=== PATIENT | female | born 1965 | race Caucasian/White ===

== ENCOUNTER 2017-10-04 13:06 | Emergency (ER) | payer BC ==
[2017-10-04 14:08] LABS: ABS Basophils 0.1 10^3/ul (0-0.2); ABS Eosinophils 0.6 10^3/ul (0-0.6); ABS Lymphocytes 1.7 10^3/ul (1.0-4.8); ABS Monocytes 1.3 10^3/ul (0-0.8); ABS Nucleated RBC 0 10^3/ul; Hematocrit 37 % (35-47); Hemoglobin 12.1 g/dl (12.0-16.0); Lymphocyte % 10.7 % (25-47); Mean Corpuscular HGB Conc 33 g/dl (31-36); Mean Corpuscular Hemoglobin 30 pg (27-31); Mean Corpuscular Volume 92 fL (80-97); Mean Platelet Volume 7 um3 (7.4-10.4); Nucleated Red Blood Cells % 0; Platelet Count 478 10^3/ul (150-450); Red Blood Count 4.03 10^6/ul (4.0-5.4); Red Cell Distribution Width 13 % (10.5-15); White Blood Count 15.6 10^3/ul (3.5-10.8)
[2017-10-04 14:10] LABS: Urine Appearance Clear; Urine Blood Negative (Negative); Urine Color Straw; Urine Ketones Negative (Negative); Urine Protein Negative (Negative); Urine Specific Gravity 1.003 (1.010-1.030); Urine Urobilinogen Negative (Negative)
[2017-10-04 14:13] LABS: INR 0.95 (0.77-1.02)
[2017-10-04] MEDS ORDERED: NS 0.9% 1000 ML* 1,000 ML BOLUS SCH (14:15)
[2017-10-04 14:24] LABS: EGFR Non-African American 98.8 (>60)
[2017-10-04] MEDS ORDERED: Ketorolac INJ* 30 MG/ML 1 ML VIAL IV PUSH ONE (14:59)
[2017-10-04] MEDS ORDERED: Ondansetron INJ* 2 MG/ML VIAL IV ONE (15:00)
[2017-10-04 15:42] VITALS: BP 103/59
--- NOTE | 2017-10-04 20:51 | ED ---
Steve Stephens Natalie, scribed for Za Joe MD on 10/04/17 at 1454 . GI/ HPI - HPI Summary HPI Summary: The patient is a 52 y/o F presenting to the ED accompanied by c/o blood in stool, diarrhea, and diffuse abd pain since 09/17/17. The pain is rated 8/ 10. The pain is alleviated by lying down. The patient and her took a trip to [facility] from 09/08/17-09/18/17, when the pt woke up with runny, liquid , brown, diarrhea starting on 09/17/17. Since shes been home, the diarrhea has had an orange color. She normally takes Mesalamine 2x daily for hx of ulcerative colitis as prescribed by her PCP Dr. Sarabia. After a week of the diarrhea not getting better, she started taking the Mesalamine 4x daily as recommended by Dr. Sarabia. She started taking a depository of Mesalamine, to no relief. Then she took Pepto-Bismol which made the abd cramping worse. 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 Results from Dr. Sarabia 09/30 show stool specimens collected were all negative with unremarkable results. She has FHx of Crohns disease in mother. - History of Current Complaint Chief Complaint: EDAbdPain Time Seen by Provider: 10/04/17 13:36 Stated Complaint: DIAHREA Hx Obtained From: Patient Onset/Duration: Started Weeks Ago - starting 09/17/17, Still Present Timing: Constant Severity: Moderate Current Severity: Moderate Pain Intensity: 9 Location of Pain: Diffuse Pain Characteristics: Cramping Associated Signs and Symptoms: Positive: Blood w/Stool, Diarrhea, Abdominal Pain - Allergy/Home Medications Allergies/Adverse Reactions: Allergies Allergy/AdvReac Type Severity Reaction Status Date / Time No Known Allergies Allergy Verified 10/04/17 13:17 PMH/Surg Hx/FS Hx/Imm Hx Previously Healthy: No Endocrine/Hematology History: Denies: Hx Diabetes Cardiovascular History: Denies: Hx Hypertension, Hx Pacemaker/ICD Respiratory History: Denies: Hx Asthma History: Denies: Hx Renal Disease Sensory History: Denies: Hx Hearing Aid Psychiatric History: Denies: Hx Panic Disorder - Cancer History Hx Chemotherapy: No Hx Radiation Therapy: No - Surgical History Surgery Procedure, Year, and Place: WISDOM TEETH, BREAST BIOPSY CLIP Infectious Disease History: No Infectious Disease History: Denies: Traveled Outside the [place] in Last 30 Days - Family History Known Family History: Positive: Other - Crohn's disease in mother - Social History Alcohol Use: Occasionally Substance Use Type: Reports: None Smoking Status (MU): Never Smoked Tobacco Review of Systems Positive: Abdominal Pain, Diarrhea - orange, Other - blood in stool Negative: dysuria All Other Systems Reviewed And Are Negative: Yes Physical Exam - Summary Physical Exam Summary: Appearance: Ill-appearing, moderate pain distress, Well-nourished Skin: Warm, color reflects adequate perfusion Head: Normal Head/Face inspection Eyes: Conjunctiva clear ENT: Normal inspection Neck: Supple, no nodes, no JVD. Respiratory: Lungs clear, Normal breath sounds, no respiratory distress Cardio: RRR, No murmur, pulses normal, brisk capillary refill Abdomen: soft, Mostly LLQ tenderness without guarding or rebound, no masses Bowel sounds: present Rectal exam: Showed negative for fissure, negative for fistulas, no hemorrhoids , no bleeding externally, nontender, minimal stool in vault, stool sent for guaiac testing which was negative Musculoskeletal: Strength Intact/ ROM intact. No calf tenderness. No edema. Neuro: Alert, muscle tone normal, facial symmetry, speech normal, sensory/motor intact Psychological: Normal Triage Information Reviewed: Yes Vital Signs On Initial Exam: Initial Vitals Temp Pulse Resp BP Pulse Ox 100.5 F 90 16 140/75 98 10/04/17 13:13 10/04/17 13:13 10/04/17 13:13 10/04/17 13:13 10/04/17 13:13 Vital Signs Reviewed: Yes Diagnostics - Vital Signs Vital Signs Temp Pulse Resp BP Pulse Ox 10/04/17 13:25 99 98 10/04/17 13:23 117/75 10/04/17 13:13 100.5 F 90 16 140/75 98 - Laboratory Lab Results: Lab Results 10/04/17 10/04/17 10/04/17 Range/Units 13:53 13:53 13:53 WBC 15.6 H (3.5-10.8) 10^3/ul RBC 4.03 (4.0-5.4) 10^6/ul Hgb 12.1 (12.0-16.0) g/dl Hct 37 (35-47) % MCV 92 (80-97) fL MCH 30 (27-31) pg MCHC 33 (31-36) g/dl RDW 13 (10.5-15) % Plt Count 478 H (150-450) 10^3/ul MPV 7 L (7.4-10.4) um3 Neut % (Auto) 76.9 (38-83) % Lymph % (Auto) 10.7 L (25-47) % [place] % (Auto) 8.1 H (0-7) % Eos % (Auto) 4.0 (0-6) % Baso % (Auto) 0.3 (0-2) % Absolute Neuts (auto) 12.0 H (1.5-7.7) 10^3/ul Absolute Lymphs (auto) 1.7 (1.0-4.8) 10^3/ul Absolute Monos (auto) 1.3 H (0-0.8) 10^3/ul Absolute Eos (auto) 0.6 (0-0.6) 10^3/ul Absolute Basos (auto) 0.1 (0-0.2) 10^3/ul Absolute Nucleated RBC 0 10^3/ul Nucleated RBC % 0 INR (Anticoag Therapy) (0.77-1.02) Sodium 136 (133-145) mmol/L Potassium 3.6 (3.5-5.0) mmol/L Chloride 103 (101-111) mmol/L Carbon Dioxide 25 (22-32) mmol/L Anion Gap 8 (2-11) mmol/L BUN 6 (6-24) mg/dL Creatinine 0.63 (0.51-0.95) mg/dL Est GFR ( Amer) 127.1 (>60) Est GFR (Non-Af Amer) 98.8 (>60) BUN/Creatinine Ratio 9.5 (8-20) Glucose 119 H (70-100) mg/dL Lactic Acid 1.4 (0.5-2.0) mmol/L Calcium 9.6 (8.6-10.3) mg/dL Magnesium 2.0 (1.9-2.7) mg/dL Total Bilirubin 0.30 (0.2-1.0) mg/dL AST 13 (13-39) U/L ALT 20 (7-52) U/L Alkaline Phosphatase 82 (34-104) U/L Total Creatine Kinase 14 (10-223) U/L C-Reactive Protein 89.67 H (< 5.00) mg/L Total Protein 7.2 (6.4-8.9) g/dL Albumin 3.8 (3.2-5.2) g/dL Globulin 3.4 (2-4) g/dL Albumin/Globulin Ratio 1.1 (1-3) Amylase 34 (29-103) U/L Lipase 11 (11.0-82.0) U/L Urine Color Urine Appearance Urine pH (5-9) Ur Specific [place] (1.010-1.030) Urine Protein (Negative) Urine Ketones (Negative) Urine Blood (Negative) Urine Nitrate (Negative) Urine Bilirubin (Negative) Urine Urobilinogen (Negative) Ur Leukocyte Esterase (Negative) Urine Glucose (Negative) 10/04/17 10/04/17 Range/Units 13:53 13:53 WBC (3.5-10.8) 10^3/ul RBC (4.0-5.4) 10^6/ul Hgb (12.0-16.0) g/dl Hct (35-47) % MCV (80-97) fL MCH (27-31) pg MCHC (31-36) g/dl RDW (10.5-15) % Plt Count (150-450) 10^3/ul MPV (7.4-10.4) um3 Neut % (Auto) (38-83) % Lymph % (Auto) (25-47) % [place] % (Auto) (0-7) % Eos % (Auto) (0-6) % Baso % (Auto) (0-2) % Absolute Neuts (auto) (1.5-7.7) 10^3/ul Absolute Lymphs (auto) (1.0-4.8) 10^3/ul Absolute Monos (auto) (0-0.8) 10^3/ul Absolute Eos (auto) (0-0.6) 10^3/ul Absolute Basos (auto) (0-0.2) 10^3/ul Absolute Nucleated RBC 10^3/ul Nucleated RBC % INR (Anticoag Therapy) 0.95 (0.77-1.02) Sodium (133-145) mmol/L Potassium (3.5-5.0) mmol/L Chloride (101-111) mmol/L Carbon Dioxide (22-32) mmol/L Anion Gap (2-11) mmol/L BUN (6-24) mg/dL Creatinine (0.51-0.95) mg/dL Est GFR ( Amer) (>60) Est GFR (Non-Af Amer) (>60) BUN/Creatinine Ratio (8-20) Glucose (70-100) mg/dL Lactic Acid (0.5-2.0) mmol/L Calcium (8.6-10.3) mg/dL Magnesium (1.9-2.7) mg/dL Total Bilirubin (0.2-1.0) mg/dL AST (13-39) U/L ALT (7-52) U/L Alkaline Phosphatase (34-104) U/L Total Creatine Kinase (10-223) U/L C-Reactive Protein (< 5.00) mg/L Total Protein (6.4-8.9) g/dL Albumin (3.2-5.2) g/dL Globulin (2-4) g/dL Albumin/Globulin Ratio (1-3) Amylase (29-103) U/L Lipase (11.0-82.0) U/L Urine Color Straw Urine Appearance Clear Urine pH 6.0 (5-9) Ur Specific [place] 1.003 L (1.010-1.030) Urine Protein Negative (Negative) Urine Ketones Negative (Negative) Urine Blood Negative (Negative) Urine Nitrate Negative (Negative) Urine Bilirubin Negative (Negative) Urine Urobilinogen Negative (Negative) Ur Leukocyte Esterase Negative (Negative) Urine Glucose Negative (Negative) Result Diagrams: 10/04/17 13:53 10/04/17 13:53 Lab Statement: Any lab studies that have been ordered have been reviewed, and results considered in the medical decision making process. - EKG 13:58 Cardiac Rate: NL EKG Rhythm: Sinus Rhythm - [address] Segment: Non-Specific Ectopy: None EKG Interpretation: Nml AVIVCT. Nml QTc. Nml axis. Re-Evaluation - Re-Evaluation First Eval Re-Evaluation Time: 15:42 Change: Improved Comment: The patient's pain is controlled. She is agreeable with being discharged home. GIGU Course/Dx - Course Course Of Treatment: Pt's medications reviewed. In the ER, the patient was given NS IV, Zofran, and Toradol. I spoke with Dr. Delcid concerning the patient 's care, who spoke with Dr. Shin, who suggested the patient is having a flare up of proctitis. The patient is diagnosed with proctitis and acute diarrhea. She will be discharged home with prescription for coritsone retention enema. The patient is advised to follow up with PCP Dr. Sarabia. - Diagnoses Provider Diagnoses: Proctitis, Acute diarrhea - Physician Notifications Discussed Care Of Patient With: Vincent Delcid Time Discussed With Above Provider: 14:49 - I talked to Dr. Delcid, who talked to the gastroentologist welder apprentice combination, Dr. Shin. They think that this is a flare up of the patient's proctitis. Discharge - Discharge Plan Condition: Stable Disposition: HOME Patient Education Materials: Proctitis (ED), Acute Diarrhea (ED) Referrals: Melia Lackey MD [Primary Care Provider] - Tisha Sarabia MD [Medical Doctor] - (keep your scheduled appointment ) Additional Instructions: We have spoken to Dr. Delcid welder apprentice combination, who spoke with Dr. Shin, vice president supply chain welder apprentice combination. They believe this is probably a flare of the proctitis. They recommend a cortisone retention enema. Dr. Delcid is prescribing this now, and sending it to [facility] in [place]. You should instill this enema at bedtime, then lie on your left side for several minutes, holding in the contents of the enema as long as possible. Then you may lie on your back and expel the enema after holding it in as long as possible. We have given you a copy of your labs, and the supplies to collect another stool specimen. Continue your mesalamine as directed. Return to the ER if you have new or worsening symptoms. The documentation as recorded by the Steve elizabeth Natalie accurately reflects the service I personally performed and the decisions made by , Za Joe MD.
== END 2017-10-04 16:07 | disposition home or self-care (01) ==
LOC: ED 13:06
DX: K62.89 Other specified diseases of anus and rectum (principal); R19.7 Diarrhea, unspecified; R10.9 Unspecified abdominal pain
CPT/HCPCS: 36415; 80053; 81003; 82150; 82272; 82550; 83605; 83690; 83735; 85025; 85610; 86140; 93005; 99282; J1885; J2405